=== PATIENT | female | born 1980 | race Caucasian/White ===

== ENCOUNTER → 2020-02-17 13:18 | Outpatient (CLI) | payer OTHER, SELFPAY ==
--- NOTE | 2020-02-17 | DI.MRI.S_ITS ---
PROCEDURE: MR FOOT RT WO CON INDICATIONS: Pain in right foot TECHNIQUE: Noncontrast sagittal T1 spin echo and T2 fast spin echo with fat saturation, long-axis T1 spin echo and T2 fast spin echo with fat saturation, short-axis T1 spin echo and T2 fast spin echo with fat saturation through the forefoot. COMPARISON: None. FINDINGS: Image quality: Excellent. Bones and joints: There is marrow edema within the 4th metatarsal however raising possibility of stress reaction. Cortical irregularity sclerosis and possible marrow edema present at the base of the 4th and 5th metatarsals, which is technically age indeterminate. Recommend correlation to radiographs which are reportedly pending/scheduled to exclude the possibility of nondisplaced fracture. The sesamoid bones appear in expected positions, without internal edema. No metatarsophalangeal joint degeneration. No intraosseous lesions. Soft tissues: The visualized plantar foot muscles demonstrate normal signal and bulk. Visualized flexor and extensor tendons appear intact, without tenosynovitis. The distal insertions of the peroneus brevis and longus tendons appear intact. The principal Lisfranc ligament appears intact. No soft tissue ganglion cysts or bursal fluid collections. Sagittal images demonstrate no evidence for plantar plate tears. There is distal posterior tibialis tenosynovitis IMPRESSION: Marrow edema within the 4th metatarsal raising possibility of stress reaction. Additional cortical irregularity, signal change and sclerosis involving the base of the 4th and 5th metatarsals raising possibility of nondisplaced fracture although technically age indeterminate. Please correlate with reportedly scheduled pending radiographs. Distal posterior tibialis tenosynovitis Dictated by: Pablo Keane M.D. on 02/17/2020 at 14:33 Approved by: Pablo Keane M.D. on 02/17/2020 at 14:42
== END ==
PROVIDERS: Referring Provider Podiatrist; Visit Provider Podiatrist
DX: R93.6 Abnormal findings on diagnostic imaging of limbs (principal); M79.671 Pain in right foot; M65.871 Other synovitis and tenosynovitis, right ankle and foot
CPT/HCPCS: 73718